=== PATIENT | female | born 1990 | race Two or more races ===

== ENCOUNTER 2022-08-06 07:58 | Emergency (ER) | payer MEDICAID ==
[~2022-08-06] VITALS: Ht 160 cm; Wt 82.5 kg
[2022-08-06 08:59] LABS: Basophils # (auto) 0.1 10 ^3/uL (0-0.2); Basophils % (auto) 0.6 % (0.0-2.0); Eosinophils # (auto) 0.1 10 ^3/uL (0-0.8); Eosinophils % (auto) 1.4 % (0.0-7.0); Hematocrit 38.5 % (36.0-46.0); Lymphocytes # (auto) 1.9 10 ^3/uL (0.4-5.4); Lymphocytes % (auto) 20.8 % (10.0-50.0); Mean Corpuscular Hemoglobin 27.7 pg (28.0-32.0); Mean Corpuscular Hgb Conc. 33.8 g/dL (32.0-36.0); Monocytes # (auto) 0.5 10 ^3/uL (0-1.3); Monocytes % (auto) 5.8 % (0.0-12.0); Neutrophils # (auto) 6.6 10 ^3/uL (1.6-8.6); Neutrophils % (auto) 71.4 % (37.0-80.0); Red Cell Distribution Width 14.3 % (11.8-14.3); White Blood Cell 9.2 10^3/uL (4.4-10.8)
[2022-08-06 09:17] LABS: Albumin 3.5 g/dL (3.4-5.0); Calcium 8.9 mg/dL (8.5-10.1); Potassium 3.8 mmol/L (3.5-5.1)
[2022-08-06 09:20] LABS: BUN/Creatinine Ratio 16.4; Bilirubin, Total 0.3 mg/dL (0.2-1.0); Total Protein 7.8 g/dL (6.4-8.2)
[2022-08-06 11:36] LABS: Urine Bacteria NONE SEEN /hpf (None Seen); Urine Blood 3+ /uL (Negative); Urine Hyaline Cast FEW /lpf (0 - 2); Urine Mucus FEW (None Seen); Urine Specific Gravity 1.027 (1.001-1.035); Urine WBC 9 /hpf (0 - 5)
[2022-08-06] MEDS ORDERED: CEPH-510 PO (12:46)
[2022-08-06 14:00] VITALS: BP 132/81
== END 2022-08-06 14:03 | disposition home or self-care (01) ==
LOC: ER 07:58
DX: O20.8 Other hemorrhage in early pregnancy (principal); O23.41 Unspecified infection of urinary tract in pregnancy, first trimester; N39.0 Urinary tract infection, site not specified; R10.2 Pelvic and perineal pain; Z3A.01 Less than 8 weeks gestation of pregnancy
CPT/HCPCS: 36415; 76801; 76817; 80053; 81001; 84702; 85025

== ENCOUNTER 2022-08-08 00:48 | Emergency (ER) | payer MEDICAID ==
[~2022-08-08] VITALS: Ht 160 cm; Wt 81.8 kg
[~2022-08-08 00:48] MED LIST: CEPH-510 PO
[2022-08-08 01:31] LABS: Basophils # (auto) 0.1 10 ^3/uL (0-0.2); Eosinophils # (auto) 0.2 10 ^3/uL (0-0.8); Eosinophils % (auto) 1.6 % (0.0-7.0); Hematocrit 37.7 % (36.0-46.0); Hemoglobin 12.4 g/dL (12.2-16.2); Lymphocytes # (auto) 2.4 10 ^3/uL (0.4-5.4); Lymphocytes % (auto) 20.7 % (10.0-50.0); Mean Corpuscular Hemoglobin 27.1 pg (28.0-32.0); Mean Corpuscular Volume 82.1 fL (80.0-100.0); Monocytes # (auto) 0.6 10 ^3/uL (0-1.3); Monocytes % (auto) 5.5 % (0.0-12.0); Neutrophils # (auto) 8.2 10 ^3/uL (1.6-8.6); Neutrophils % (auto) 71.2 % (37.0-80.0); Red Blood Cells 4.59 10^6/uL (4.0-5.20); Red Cell Distribution Width 14.1 % (11.8-14.3); White Blood Cell 11.6 10^3/uL (4.4-10.8)
[2022-08-08 01:36] LABS: Urine Bacteria NONE SEEN /hpf (None Seen); Urine Blood 3+ /uL (Negative)
[2022-08-08 01:51] LABS: Albumin 3.2 g/dL (3.4-5.0); BUN/Creatinine Ratio 17.3; Calcium 9.2 mg/dL (8.5-10.1); Potassium 3.9 mmol/L (3.5-5.1)
[2022-08-08 01:54] LABS: Bilirubin, Total 0.4 mg/dL (0.2-1.0); Total Protein 7.5 g/dL (6.4-8.2)
[2022-08-08 03:40] LABS: Urine Specific Gravity 1.025 (1.001-1.035); Urine WBC 4 /hpf (0 - 5)
[2022-08-08 04:20] VITALS: BP 103/64
== END 2022-08-08 04:23 | disposition home or self-care (01) ==
LOC: ER 00:48
DX: O03.4 Incomplete spontaneous abortion without complication (principal); R10.2 Pelvic and perineal pain; Z3A.01 Less than 8 weeks gestation of pregnancy
CPT/HCPCS: 36415; 76801; 76817; 80053; 81001; 84702; 85025

== ENCOUNTER 2023-01-17 11:33 | Emergency (ER) | payer MEDICAID ==
[~2023-01-17] VITALS: Ht 162.6 cm; Wt 83.0 kg
[~2023-01-17 11:33] MED LIST changes: +CEPH250C PO
[2023-01-17 12:20] LABS: Basophils # (auto) 0 10 ^3/uL (0-0.2); Basophils % (auto) 0.4 % (0.0-2.0); Eosinophils # (auto) 0 10 ^3/uL (0-0.8); Eosinophils % (auto) 0.3 % (0.0-7.0); Hematocrit 37.9 % (36.0-46.0); Hemoglobin 12.9 g/dL (12.2-16.2); Lymphocytes # (auto) 2.1 10 ^3/uL (0.4-5.4); Lymphocytes % (auto) 23.3 % (10.0-50.0); Mean Corpuscular Hgb Conc. 33.9 g/dL (32.0-36.0); Mean Corpuscular Volume 82.5 fL (80.0-100.0); Monocytes # (auto) 0.5 10 ^3/uL (0-1.3); Neutrophils # (auto) 6.3 10 ^3/uL (1.6-8.6); Red Blood Cells 4.59 10^6/uL (4.0-5.20); Red Cell Distribution Width 14.3 % (11.8-14.3)
[2023-01-17 12:43] LABS: Urine Bacteria FEW /hpf (None Seen); Urine Blood Negative /uL (Negative); Urine Mucus MODERATE (None Seen); Urine Specific Gravity 1.031 (1.001-1.035); Urine WBC 6 /hpf (0 - 5)
[2023-01-17 12:59] LABS: Potassium 3.5 mmol/L (3.5-5.1)
[2023-01-17 13:02] VITALS: BP 101/57; PULSE 82; RESP 16; TEMP 98.3; O2SAT 98
[2023-01-17 13:06] LABS: Albumin 3.3 g/dL (3.4-5.0); BUN/Creatinine Ratio 11.3 (10.0-20.0); Bilirubin, Total 0.6 mg/dL (0.2-1.0); Calcium 8.6 mg/dL (8.5-10.1)
[2023-01-17] MEDS ORDERED: NITR-87 PO (14:07)
== END 2023-01-17 14:22 | disposition home or self-care (01) ==
LOC: ER 11:33
DX: O20.0 Threatened abortion (principal); N39.0 Urinary tract infection, site not specified; Z3A.10 10 weeks gestation of pregnancy; Z79.899 Other long term (current) drug therapy; Z90.49 Acquired absence of other specified parts of digestive tract
CPT/HCPCS: 36415; 76801; 80053; 81001; 84702; 85025

== ENCOUNTER 2023-03-11 09:32 | Emergency (ER) | payer MEDICAID ==
[~2023-03-11] VITALS: Ht 167.6 cm; Wt 85.0 kg
[~2023-03-11 09:32] MED LIST changes: +NITR-87 PO
[2023-03-11 10:42] LABS: Basophils # (auto) 0 10 ^3/uL (0-0.2); Basophils % (auto) 0.3 % (0.0-2.0); Eosinophils # (auto) 0.1 10 ^3/uL (0-0.8); Eosinophils % (auto) 0.8 % (0.0-7.0); Hematocrit 33.8 % (36.0-46.0); Hemoglobin 11.4 g/dL (12.2-16.2); Lymphocytes # (auto) 1.7 10 ^3/uL (0.4-5.4); Mean Corpuscular Hemoglobin 28.5 pg (28.0-32.0); Mean Corpuscular Hgb Conc. 33.8 g/dL (32.0-36.0); Mean Corpuscular Volume 84.6 fL (80.0-100.0); Monocytes # (auto) 0.6 10 ^3/uL (0-1.3); Monocytes % (auto) 6.8 % (0.0-12.0); Neutrophils # (auto) 6.6 10 ^3/uL (1.6-8.6); Neutrophils % (auto) 73.1 % (37.0-80.0); Red Cell Distribution Width 14.7 % (11.8-14.3); White Blood Cell 9.1 10^3/uL (4.4-10.8)
[2023-03-11 11:00] LABS: Urine Bacteria FEW /hpf (None Seen); Urine Blood Negative /uL (Negative); Urine Clarity Clear (Clear); Urine Color Yellow (Yellow); Urine Mucus FEW (None Seen); Urine Protein, UAD TRACE (Negative); Urine Specific Gravity 1.026 (1.001-1.035); Urine Urobilinogen Normal (Negative); Urine WBC 2 /hpf (0 - 5)
[2023-03-11 11:12] LABS: Alanine Aminotransferase 15 U/L (7-40); Albumin 3.9 g/dL (3.2-4.8); Alkaline Phosphatase 42 U/L (46-116); Aspartate Aminotransferase 12 U/L (13-40); BUN/Creatinine Ratio 9.1 (10.0-20.0); Blood Urea Nitrogen 5 mg/dL (9-23); Carbon Dioxide 23 mmol/L (20-30); Glucose 81 mg/dL (74-106)
[2023-03-11 11:13] LABS: Bilirubin, Total 0.4 mg/dL (0.2-1.0); Total Protein 6.6 g/dL (5.7-8.2)
[2023-03-11 11:28] LABS: Anion Gap 7 (5-15); Chloride 107 mmol/L (98-107); Potassium 3.6 mmol/L (3.5-5.1); Sodium 137 mmol/L (136-145)
[2023-03-11 15:00] VITALS: BP 115/52; PULSE 76; RESP 18; TEMP 98.1; O2SAT 100
== END 2023-03-11 17:02 | disposition home or self-care (01) ==
LOC: ER 09:32
DX: O99.612 Diseases of the digestive system complicating pregnancy, second trimester (principal); R10.2 Pelvic and perineal pain; O26.892 Other specified pregnancy related conditions, second trimester; K92.89 Other specified diseases of the digestive system; Z3A.18 18 weeks gestation of pregnancy; Z79.899 Other long term (current) drug therapy; Z90.49 Acquired absence of other specified parts of digestive tract
CPT/HCPCS: 36415; 80053; 81001; 84702; 85025

== ENCOUNTER 2023-04-23 21:30 | Observation (INO) | payer MEDICAID ==
[2023-04-23 22:41] LABS: Basophils # (auto) 0.1 10 ^3/uL (0-0.2); Basophils % (auto) 0.5 % (0.0-2.0); Eosinophils # (auto) 0.1 10 ^3/uL (0-0.8); Eosinophils % (auto) 1.3 % (0.0-7.0); Hematocrit 32.8 % (36.0-46.0); Hemoglobin 11.1 g/dL (12.2-16.2); Lymphocytes # (auto) 2.1 10 ^3/uL (0.4-5.4); Lymphocytes % (auto) 20.9 % (10.0-50.0); Mean Corpuscular Hemoglobin 28.5 pg (28.0-32.0); Mean Corpuscular Hgb Conc. 33.7 g/dL (32.0-36.0); Mean Corpuscular Volume 84.5 fL (80.0-100.0); Monocytes # (auto) 0.7 10 ^3/uL (0-1.3); Monocytes % (auto) 7.2 % (0.0-12.0); Neutrophils % (auto) 70.1 % (37.0-80.0); Red Blood Cells 3.89 10^6/uL (4.0-5.20); Red Cell Distribution Width 14.5 % (11.8-14.3)
[2023-04-23 22:52] LABS: Protein, Urine 13.7 mg/dL (0.0-11.9)
[2023-04-23 22:54] LABS: Urine Bacteria NONE SEEN /hpf (None Seen); Urine Blood Negative /uL (Negative); Urine Clarity HAZY (Clear); Urine Color Yellow (Yellow); Urine Protein, UAD Negative (Negative); Urine Specific Gravity 1.017 (1.001-1.035); Urine Urobilinogen Normal (Negative); Urine WBC 25 /hpf (0 - 5); Urine pH 6.5 (5.0-8.0)
[2023-04-23 22:55] LABS: Creatinine, Urine 94.17 mg/dL (30.0-125.0); Urine Protein/Creatinine Ratio 0.15
[2023-04-23 22:58] LABS: Alanine Aminotransferase 18 U/L (7-40); Albumin 3.8 g/dL (3.2-4.8); Alkaline Phosphatase 59 U/L (46-116); Anion Gap 6 (5-15); Aspartate Aminotransferase 15 U/L (13-40); Bilirubin, Total 0.3 mg/dL (0.2-1.0); Calcium 8.7 mg/dL (8.7-10.4); Carbon Dioxide 23 mmol/L (20-30); Chloride 108 mmol/L (98-107); Glucose 88 mg/dL (74-106); Potassium 3.4 mmol/L (3.5-5.1); Sodium 137 mmol/L (136-145); Total Protein 6.4 g/dL (5.7-8.2)
[2023-04-23 22:59] LABS: BUN/Creatinine Ratio 8.8 (10.0-20.0); Blood Urea Nitrogen < 5 mg/dL (9-23)
== END 2023-04-23 23:34 | disposition home or self-care (01) ==
LOC: LDRP 21:30
PROVIDERS: ADMIT Obstetrics & Gynecology; ATTEND Obstetrics & Gynecology
DX: O21.2 Late vomiting of pregnancy (principal); O26.892 Other specified pregnancy related conditions, second trimester; R51.9 Headache, unspecified; R04.2 Hemoptysis; H57.12 Ocular pain, left eye; Z3A.24 24 weeks gestation of pregnancy
CPT/HCPCS: 36415; 59025; 80053; 81001; 81002; 82570; 84156; 84550; 85025; 94760; G0378

== ENCOUNTER 2023-04-24 07:28 | Emergency (ER) | payer MEDICAID ==
[~2023-04-24] VITALS: Ht 144.8 cm; Wt 84.0 kg
[2023-04-24 07:31] VITALS: BP 95/52; PULSE 87; RESP 18; TEMP 97.7; O2SAT 100
[2023-04-24 09:08] LABS: Urine Bacteria NONE SEEN /hpf (None Seen); Urine Blood Negative /uL (Negative); Urine Clarity HAZY (Clear); Urine Color Yellow (Yellow); Urine Mucus FEW (None Seen); Urine Protein, UAD TRACE (Negative); Urine Specific Gravity 1.023 (1.001-1.035); Urine Urobilinogen Normal (Negative); Urine WBC 3 /hpf (0 - 5); Urine pH 6.5 (5.0-8.0)
[2023-04-24 09:30] LABS: Basophils # (auto) 0 10 ^3/uL (0-0.2); Basophils % (auto) 0.4 % (0.0-2.0); Eosinophils # (auto) 0.1 10 ^3/uL (0-0.8); Eosinophils % (auto) 1.1 % (0.0-7.0); Hematocrit 34.8 % (36.0-46.0); Hemoglobin 11.5 g/dL (12.2-16.2); Lymphocytes # (auto) 1.7 10 ^3/uL (0.4-5.4); Lymphocytes % (auto) 18.4 % (10.0-50.0); Mean Corpuscular Hemoglobin 27.9 pg (28.0-32.0); Mean Corpuscular Volume 84.5 fL (80.0-100.0); Monocytes # (auto) 0.6 10 ^3/uL (0-1.3); Neutrophils # (auto) 6.9 10 ^3/uL (1.6-8.6); Neutrophils % (auto) 74.1 % (37.0-80.0); Red Blood Cells 4.12 10^6/uL (4.0-5.20); Red Cell Distribution Width 14.4 % (11.8-14.3); White Blood Cell 9.4 10^3/uL (4.4-10.8)
[2023-04-24 09:38] LABS: Chloride 107 mmol/L (98-107); Potassium 3.4 mmol/L (3.5-5.1); Sodium 138 mmol/L (136-145)
[2023-04-24 09:39] LABS: Anion Gap 8 (5-15); Calcium 8.9 mg/dL (8.5-10.1); Carbon Dioxide 23 mmol/L (20-30)
[2023-04-24 09:44] LABS: Glucose 79 mg/dL (74-106)
[2023-04-24 10:09] LABS: BUN/Creatinine Ratio 10.2 (10.0-20.0); Blood Urea Nitrogen < 5 mg/dL (9-23)
== END 2023-04-24 10:15 | disposition home or self-care (01) ==
LOC: ER 07:28
DX: O21.8 Other vomiting complicating pregnancy (principal); R07.0 Pain in throat; Z90.49 Acquired absence of other specified parts of digestive tract; Z79.899 Other long term (current) drug therapy; Z3A.24 24 weeks gestation of pregnancy
CPT/HCPCS: 36415; 80048; 81001; 85025

== ENCOUNTER 2023-06-11 07:50 | Observation (INO) | payer MEDICAID ==
[~2023-06-11] VITALS: Ht 154.9 cm; Wt 87.3 kg
[2023-06-11 07:58] VITALS: BP 98/67; PULSE 104; RESP 18; O2SAT 100
[2023-06-11] MEDS ORDERED: LACTATED RINGER'S 1,000 ML IV SCH (09:00)
[2023-06-11 09:36] LABS: Urine Bacteria FEW /hpf (None Seen); Urine Blood 3+ /uL (Negative); Urine Clarity Clear (Clear); Urine Color Yellow (Yellow); Urine Mucus FEW (None Seen); Urine Protein, UAD TRACE (Negative); Urine Specific Gravity 1.021 (1.001-1.035); Urine Urobilinogen Normal (Negative); Urine WBC 3 /hpf (0 - 5)
[2023-06-11] MEDS ORDERED: TERBUTALINE SULFATE 1 MG/ML 1ML VIAL SC SCH (09:45)
[2023-06-11] MEDS ORDERED: TERBUTALINE SULFATE 1 MG/ML 1ML VIAL SC ONE (09:58)
[2023-06-11] MEDS ORDERED: NIF10C PO (15:17)
[2023-06-11] MEDS ORDERED: PRENCAP11 PO (15:17)
== END 2023-06-11 11:48 | disposition home or self-care (01) ==
LOC: ER 07:50 → LDRP 08:08 → UNDOADMOB 08:08 → LDRP 08:41
PROVIDERS: ADMIT Obstetrics & Gynecology; ATTEND Obstetrics & Gynecology
DX: O47.03 False labor before 37 completed weeks of gestation, third trimester (principal); O26.893 Other specified pregnancy related conditions, third trimester; R10.9 Unspecified abdominal pain; M54.50 Low back pain, unspecified; Z3A.31 31 weeks gestation of pregnancy
CPT/HCPCS: 59025; 76818; 81001; 81002; 94760; 96365; 96372; 99284; G0378; J3105; 96366

== ENCOUNTER 2023-06-18 11:13 | Observation (INO) | payer MEDICAID ==
[~2023-06-18 11:13] MED LIST changes: -CEPH-510 PO; -CEPH250C PO; +NIF10C PO; -NITR-87 PO; +PRENCAP11 PO
== END 2023-06-18 13:53 | disposition home or self-care (01) ==
LOC: LDRP 11:13
PROVIDERS: ADMIT Nurse Practitioner Women's Health; ATTEND Nurse Practitioner Women's Health
DX: O60.03 Preterm labor without delivery, third trimester (principal); Z3A.32 32 weeks gestation of pregnancy
CPT/HCPCS: 59025; 81002; G0378

== ENCOUNTER 2023-06-25 09:01 | Observation (INO) | payer MEDICAID | END 2023-06-25 10:14 | disposition home or self-care (01) | LOC: LDRP 09:01 → UNDOADMOB 09:01 → LDRP 09:08 | PROVIDERS: ADMIT Obstetrics & Gynecology; ATTEND Obstetrics & Gynecology | DX: O60.03 Preterm labor without delivery, third trimester (principal); Z3A.33 33 weeks gestation of pregnancy | CPT/HCPCS: 59025; 81002; G0378 ==

== ENCOUNTER 2023-07-02 10:55 | Observation (INO) | payer MEDICAID ==
[2023-07-02] MEDS ORDERED: LACTATED RINGER'S 1,000 ML IV ONE (11:30)
[2023-07-02 12:23] LABS: Vaginal Trichomonas Not Present
[2023-07-02 12:24] LABS: Vaginal Bacteria Few; Vaginal Clue Cells Rare; Vaginal Epithelial Cells Rare
[2023-07-02 12:31] LABS: Urine Bacteria FEW /hpf (None Seen); Urine Blood Negative /uL (Negative); Urine Clarity HAZY (Clear); Urine Color Yellow (Yellow); Urine Mucus FEW (None Seen); Urine Protein, UAD 1+ (Negative); Urine Specific Gravity 1.024 (1.001-1.035); Urine Urobilinogen Normal (Negative); Urine WBC 4 /hpf (0 - 5); Urine pH 6.5 (5.0-8.0)
== END 2023-07-02 12:58 | disposition home or self-care (01) ==
LOC: UNDOADMOB 10:55 → LDRP 10:55
PROVIDERS: ADMIT Obstetrics & Gynecology; ATTEND Obstetrics & Gynecology
DX: O60.03 Preterm labor without delivery, third trimester (principal); O62.9 Abnormality of forces of labor, unspecified; O26.893 Other specified pregnancy related conditions, third trimester; N89.8 Other specified noninflammatory disorders of vagina; Z3A.34 34 weeks gestation of pregnancy
CPT/HCPCS: 59025; 81001; 81002; 87210; 94760; 96360; 96361; G0378

== ENCOUNTER 2023-07-09 02:24 | Observation (INO) | payer MEDICAID ==
[~2023-07-09] VITALS: Ht 144.8 cm; Wt 86.2 kg
[2023-07-09] MEDS ORDERED: LACTATED RINGER'S 1,000 ML IV SCH (03:00)
[2023-07-09] MEDS ORDERED: LACTATED RINGER'S 1,000 ML IV ONE (03:00)
[2023-07-09 03:36] LABS: Rapid Influenza A Negative (Negative); Rapid Influenza B Negative (Negative)
[2023-07-09 03:38] LABS: COVID19 ANTIGEN SOFIA FIA POSITIVE (NEGATIVE)
== END 2023-07-09 05:05 | disposition home or self-care (01) ==
LOC: LDRP 02:24
PROVIDERS: ADMIT Obstetrics & Gynecology; ATTEND Obstetrics & Gynecology
DX: O98.513 Other viral diseases complicating pregnancy, third trimester (principal); O26.893 Other specified pregnancy related conditions, third trimester; U07.1 COVID-19; M54.50 Low back pain, unspecified; R10.32 Left lower quadrant pain; R51.9 Headache, unspecified; Z3A.35 35 weeks gestation of pregnancy
CPT/HCPCS: 36415; 59025; 76818; 81002; 87426; 87804; 94760; 96360; 96361; G0378

== ENCOUNTER 2023-07-16 11:22 | Observation (INO) | payer MEDICAID | END 2023-07-16 13:00 | disposition home or self-care (01) | LOC: LDRP 11:22 → UNDOADMOB 11:22 → LDRP 11:39 → UNDODISOB 13:00 | PROVIDERS: ADMIT Obstetrics & Gynecology; ATTEND Obstetrics & Gynecology | DX: O60.03 Preterm labor without delivery, third trimester (principal); Z3A.36 36 weeks gestation of pregnancy | CPT/HCPCS: 59025; 76818; 81002; 94760; G0378 ==

== ENCOUNTER 2023-07-21 15:43 | Observation (INO) | payer MEDICAID ==
[2023-07-21 16:40] LABS: Basophils # (auto) 0 10 ^3/uL (0-0.2); Eosinophils # (auto) 0.1 10 ^3/uL (0-0.8); Eosinophils % (auto) 0.7 % (0.0-7.0); Hemoglobin 12.5 g/dL (12.2-16.2)
[2023-07-21 16:42] LABS: Basophils % (auto) 0.6 % (0.0-2.0); Hematocrit 38.4 % (36.0-46.0); Lymphocytes # (auto) 1.9 10 ^3/uL (0.4-5.4); Lymphocytes % (auto) 22.6 % (10.0-50.0); Mean Corpuscular Hemoglobin 25.9 pg (28.0-32.0); Mean Corpuscular Hgb Conc. 32.5 g/dL (32.0-36.0); Mean Corpuscular Volume 79.7 fL (80.0-100.0); Monocytes # (auto) 0.7 10 ^3/uL (0-1.3); Monocytes % (auto) 8.5 % (0.0-12.0); Neutrophils # (auto) 5.5 10 ^3/uL (1.6-8.6); Neutrophils % (auto) 67.6 % (37.0-80.0); Red Blood Cells 4.82 10^6/uL (4.0-5.20); Red Cell Distribution Width 15.3 % (11.8-14.3); White Blood Cell 8.2 10^3/uL (4.4-10.8)
[2023-07-21 17:07] LABS: Alanine Aminotransferase 129 U/L (7-40); Albumin 3.8 g/dL (3.2-4.8); Alkaline Phosphatase 182 U/L (46-116); Anion Gap 9 (5-15); Aspartate Aminotransferase 79 U/L (13-40); BUN/Creatinine Ratio 9.1 (10.0-20.0); Bilirubin, Total 0.6 mg/dL (0.2-1.0); Blood Urea Nitrogen 5 mg/dL (9-23); Calcium 9.1 mg/dL (8.5-10.1); Carbon Dioxide 19 mmol/L (20-30); Chloride 109 mmol/L (98-107); Glucose 84 mg/dL (74-106); Potassium 4.1 mmol/L (3.5-5.1); Sodium 137 mmol/L (136-145); Total Protein 6.6 g/dL (5.7-8.2)
[2023-07-21 17:13] LABS: Fern Testing Positive
== END 2023-07-21 22:19 | disposition home or self-care (01) ==
LOC: LDRP 15:43 → UNDOADMOB 15:43 → LDRP 15:51 → UNDODISOB 22:19
PROVIDERS: ADMIT Obstetrics & Gynecology; ATTEND Obstetrics & Gynecology
DX: O26.643 Intrahepatic cholestasis of pregnancy, third trimester (principal); O62.9 Abnormality of forces of labor, unspecified; O42.92 Full-term premature rupture of membranes, unspecified as to length of time between rupture and onset of labor; O26.893 Other specified pregnancy related conditions, third trimester; N89.8 Other specified noninflammatory disorders of vagina; K83.1 Obstruction of bile duct; R10.13 Epigastric pain; Z3A.37 37 weeks gestation of pregnancy
CPT/HCPCS: 36415; 59025; 80053; 81002; 84112; 85025; 94760; G0378; Q0114

== ENCOUNTER 2023-07-23 12:16 | Inpatient (IN) | payer MEDICAID ==
[~2023-07-23] VITALS: Ht 154.9 cm; Wt 84.4 kg
[2023-07-23 13:31] LABS: Fern Testing Negative
[2023-07-23] MEDS ORDERED: PROMETHAZINE HCL 25 MG/ML 1ML IV PRN (14:45)
[2023-07-23] MEDS ORDERED: LIDOCAINE 2%HCL (LOCAL ANESTH.) INJ 20ML MDV IJ PRN (14:45)
[2023-07-23] MEDS ORDERED: PHISODERM TOP SOLN 240ML BTL TOP PRN (14:45)
[2023-07-23] MEDS ORDERED: LACT. RINGERS/OXYTOCIN 20UNITS 500 ML IV ONE ×2 (14:45→15:15)
[2023-07-23] MEDS ORDERED: DERMOPLAST 60ML BOTTLE TOP PRN (14:45)
[2023-07-23] MEDS ORDERED: WITCH HAZEL-GLYCERIN PAD TOP PRN (14:45)
[2023-07-23] MEDS ORDERED: PENICILLIN G POT 5MIL/D5 50ML 50 ML IV ONE (14:45)
[2023-07-23] MEDS ORDERED: BUTORPHANOL TARTRATE 2 MG/1 ML VIAL IV PRN ×2 (14:45)
[2023-07-23] MEDS ORDERED: URSODIOL 300 MG CAP PO SCH (14:58)
[2023-07-23] MEDS: LACTATED RINGER'S 1,000 ML IV SCH (15:32)
[2023-07-23 15:36] LABS: Basophils # (auto) 0 10 ^3/uL (0-0.2); Basophils % (auto) 0.5 % (0.0-2.0); Eosinophils # (auto) 0 10 ^3/uL (0-0.8); Eosinophils % (auto) 0.5 % (0.0-7.0); Hematocrit 38.3 % (36.0-46.0); Hemoglobin 12.5 g/dL (12.2-16.2); Lymphocytes # (auto) 1.7 10 ^3/uL (0.4-5.4); Lymphocytes % (auto) 21.2 % (10.0-50.0); Mean Corpuscular Hgb Conc. 32.6 g/dL (32.0-36.0); Mean Corpuscular Volume 79.8 fL (80.0-100.0); Monocytes # (auto) 0.6 10 ^3/uL (0-1.3); Monocytes % (auto) 8.1 % (0.0-12.0); Neutrophils # (auto) 5.6 10 ^3/uL (1.6-8.6); Neutrophils % (auto) 69.7 % (37.0-80.0); Nucleated Red Blood Cells % 0.1 %; Red Cell Distribution Width 15.6 % (11.8-14.3)
[2023-07-23 15:46] LABS: Urine Amorphous Crystal FEW /hpf (None Seen); Urine Bacteria NONE SEEN /hpf (None Seen); Urine Blood Negative /uL (Negative); Urine Clarity Clear (Clear); Urine Color Yellow (Yellow); Urine Mucus FEW (None Seen); Urine Protein, UAD TRACE (Negative); Urine WBC 15 /hpf (0 - 5); Urine pH 6.5 (5.0-8.0)
[2023-07-23 15:51] LABS: Amphetamine Screen, Urine Neg (NEGATIVE); Barbiturate Scree,Urine Neg (NEGATIVE); Benzodiazephine Screen, Urine Neg (NEGATIVE); Cannabinoid Screen, Urine Neg (NEGATIVE); Cocaine Screen, Urine Neg (NEGATIVE); Opiate Scree,Urine Neg (NEGATIVE); Phencyclidine Screen, Urine Neg (NEGATIVE)
[2023-07-23 15:55] LABS: Alanine Aminotransferase 163 U/L (7-40); Albumin 3.7 g/dL (3.2-4.8); Alkaline Phosphatase 186 U/L (46-116); Anion Gap 8 (5-15); Aspartate Aminotransferase 121 U/L (13-40); BUN/Creatinine Ratio 11.8 (10.0-20.0); Blood Urea Nitrogen 6 mg/dL (9-23); Calcium 8.8 mg/dL (8.7-10.4); Carbon Dioxide 21 mmol/L (20-30); Chloride 109 mmol/L (98-107); Glucose 79 mg/dL (74-106); Potassium 3.7 mmol/L (3.5-5.1); Sodium 138 mmol/L (136-145)
[2023-07-23 15:56] LABS: Bilirubin, Total 0.7 mg/dL (0.2-1.0); Total Protein 6.5 g/dL (5.7-8.2)
[2023-07-23] MEDS: miSOPROStol 50 MCG per PRE-CUT 1/2 TAB PO PRN (17:01)
[2023-07-23 17:10] LABS: INR 0.91 (0.9-1.15); Partial Thromboplastin Time 26.8 SEC (24.5-34.5); Prothrombin Time 9.6 sec (9.3-11.8)
[2023-07-23] MEDS ORDERED: PENICILLIN G POTASSIUM 2,500,000 UNITS in D5W 5% 50 ML IV SCH (18:45)
[2023-07-23] MEDS ORDERED: LIDOCAINE HCL 2 %PF INJ 10ML AMP IJ ONE ×2 (20:30)
[2023-07-23] MEDS ORDERED: fentaNYL CITRATE 100 MCG/2 ML VL IV ONE (20:30)
[2023-07-23] MEDS ORDERED: ePHEDrine SULFATE 50 MG/ML AMP IV ONE (20:30)
[2023-07-23] MEDS ORDERED: fentaNYL CITRATE 100 MCG/2 ML VL ONE (20:30)
[2023-07-23] MEDS ORDERED: NALOXONE HCL 0.4 MG/ML VIAL IV ONE (20:30)
[2023-07-23] MEDS ORDERED: ROPIVACAINE HCL 100 ML ONE (20:31)
[2023-07-23] MEDS ORDERED: FAMOTIDINE (10MG/ML) 2ML VL IV ONE ×2 (21:17→22:00)
[2023-07-23] MEDS ORDERED: diphenhdrAMINE HCL 50 MG/1 ML VL IV PRN (21:30)
[2023-07-23] MEDS ORDERED: ONDANSETRON HCL 4 MG/2 ML VIAL IV PRN (22:45)
[2023-07-24] MEDS: LACTATED RINGER'S 1,000 ML IV SCH (00:46)
[2023-07-24] MEDS: miSOPROStol 50 MCG per PRE-CUT 1/2 TAB PO PRN (02:18)
[2023-07-24] MEDS ORDERED: LACT. RINGERS/OXYTOCIN 20UNITS 1,000 ML IV SCH (07:00)
[2023-07-24] MEDS ORDERED: TERBUTALINE SULFATE 1 MG/ML 1ML VIAL SC PRN (07:00)
[2023-07-24 07:06] LABS: RPR Non Reactive (Non Reactive)
[2023-07-24] MEDS ORDERED: ROPIVACAINE HCL 100 ML ONE (08:21)
[2023-07-24] MEDS ORDERED: URSODIOL 300 MG CAP PO SCH (10:00)
[2023-07-24] MEDS ORDERED: METHYLERGONOVINE MALEATE 0.2 MG/ML AMP IM ONE ×2 (13:17→13:33)
[2023-07-24] MEDS ORDERED: ACETAMINOPHEN 325 MG TAB PO PRN (14:15)
[2023-07-24] MEDS ORDERED: ONDANSETRON ODT 4 MG TAB PO PRN (14:15)
[2023-07-24 15:12] VITALS: PULSE 78; RESP 18; O2SAT 99
[2023-07-24 19:00] VITALS: BP 111/60; PULSE 60; RESP 18; TEMP 97.7; O2SAT 97
[2023-07-24] MEDS: IBUPROFEN 600 MG TAB PO PRN (20:55)
[2023-07-24 23:10] VITALS: BP 100/58; PULSE 61; RESP 17; TEMP 98.8; O2SAT 97
[2023-07-25] VITALS (7 sets, daily range): BP systolic 78–104; BP diastolic 42–63; PULSE 60–77; RESP 14–20; TEMP 97.5–97.9; O2SAT 94–98
[2023-07-25] MEDS: IBUPROFEN 600 MG TAB PO PRN ×2 (04:00→18:41)
[2023-07-25 09:41] LABS: Basophils # (auto) 0.1 10 ^3/uL (0-0.2); Basophils % (auto) 0.4 % (0.0-2.0); Eosinophils # (auto) 0.1 10 ^3/uL (0-0.8); Eosinophils % (auto) 0.4 % (0.0-7.0); Hematocrit 36.2 % (36.0-46.0); Hemoglobin 11.5 g/dL (12.2-16.2); Lymphocytes # (auto) 2.3 10 ^3/uL (0.4-5.4); Lymphocytes % (auto) 14.7 % (10.0-50.0); Mean Corpuscular Hemoglobin 25.6 pg (28.0-32.0); Mean Corpuscular Hgb Conc. 31.6 g/dL (32.0-36.0); Mean Corpuscular Volume 80.9 fL (80.0-100.0); Monocytes # (auto) 0.8 10 ^3/uL (0-1.3); Monocytes % (auto) 5.1 % (0.0-12.0); Neutrophils # (auto) 12.3 10 ^3/uL (1.6-8.6); Neutrophils % (auto) 79.4 % (37.0-80.0); Nucleated Red Blood Cells % 0.1 %; Red Blood Cells 4.48 10^6/uL (4.0-5.20); Red Cell Distribution Width 15.7 % (11.8-14.3); White Blood Cell 15.4 10^3/uL (4.4-10.8)
[2023-07-25 11:08] LABS: Alanine Aminotransferase 143 U/L (7-40); Alkaline Phosphatase 151 U/L (46-116); Calcium 8.9 mg/dL (8.5-10.1); Chloride 110 mmol/L (98-107)
[2023-07-25 11:09] LABS: Albumin 3.2 g/dL (3.2-4.8); Anion Gap 6 (5-15); Aspartate Aminotransferase 90 U/L (13-40); Bilirubin, Total 0.9 mg/dL (0.2-1.0); Carbon Dioxide 24 mmol/L (20-30); Glucose 74 mg/dL (74-106); Potassium 3.8 mmol/L (3.5-5.1); Sodium 140 mmol/L (136-145); Total Protein 5.7 g/dL (5.7-8.2)
[2023-07-25 11:11] LABS: BUN/Creatinine Ratio 8.3 (10.0-20.0); Blood Urea Nitrogen < 5 mg/dL (9-23)
[2023-07-25] MEDS ORDERED: SODIUM CHLORIDE 0.9% 1,000 ML IV SCH (11:15)
[2023-07-25 18:06] LABS: Treponema pallidum Ab (FTA-Ab) Non Reactive (Non Reactive)
[2023-07-26 03:05] VITALS: BP 99/58; PULSE 62; RESP 18; TEMP 98; O2SAT 98
[2023-07-26 07:30] VITALS: BP 105/57; PULSE 67; RESP 16; TEMP 97.8; O2SAT 98
[2023-07-26 10:30] VITALS: BP 98/56; PULSE 72; RESP 18; TEMP 98; O2SAT 98
== END 2023-07-26 10:47 | disposition home or self-care (01) | DRG 560 ==
LOC: LDRP 12:16 → OBSVTOIN 14:24 → LDRP 18:42
PROVIDERS: ADMIT Obstetrics & Gynecology; ATTEND Obstetrics & Gynecology
PROC: 3E0R3BZ Introduction of Anesthetic Agent into Spinal Canal, Percutaneous Approach (ICD-10-PCS; 2023-07-23)
PROC: 00HU33Z Insertion of Infusion Device into Spinal Canal, Percutaneous Approach (ICD-10-PCS; 2023-07-23)
PROC: 10E0XZZ Delivery of Products of Conception, External Approach (ICD-10-PCS; principal; 2023-07-24)
DX: O60.14X0 Preterm labor third trimester with preterm delivery third trimester, not applicable or unspecified (principal); Z37.0 Single live birth; O26.643 Intrahepatic cholestasis of pregnancy, third trimester; Z3A.37 37 weeks gestation of pregnancy
CPT/HCPCS: 36415; 59025; 59409; 62282; 76818; 80053; 80307; 81001; 81002; 84112; 85025; 85610; 85730; 86592; 86850; 86900; 86901; 94760; 96360; 96361; 96365; 96366; 96374; G0378; J2405; J2540; J2590; J3490; J7060